=== PATIENT | male | born 1995 | race Caucasian/White ===

== ENCOUNTER 2016-05-23 09:33 | Emergency (ER) | payer MEDICAID, OTHER ==
[~2016-05-23] VITALS: Ht 193 cm; Wt 111.1 kg
[2016-05-23 10:14] VITALS: BP 98/68
[2016-05-23] MEDS ORDERED: IBUPROFEN 800 MG TAB PO ONE (10:30)
== END 2016-05-23 11:14 | disposition home or self-care (01) ==
LOC: ER 09:39
DX: S39.012A Strain of muscle, fascia and tendon of lower back, initial encounter (principal); R51 Headache; R10.9 Unspecified abdominal pain; Z88.0 Allergy status to penicillin; W01.0XXA Fall on same level from slipping, tripping and stumbling without subsequent striking against object, initial encounter; Y93.89 Activity, other specified; Y99.0 Civilian activity done for income or pay; Y92.69 Other specified industrial and construction area as the place of occurrence of the external cause
CPT/HCPCS: 70450; 72131; 74176; 81002; 93005